=== PATIENT | male | born 1980 | race Hispanic/Latino ===

== ENCOUNTER 2024-02-10 22:12 | Emergency (ER) | payer SELFPAY ==
[~2024-02-10] VITALS: Ht 167.6 cm; Wt 74.8 kg
[2024-02-10 22:13] VITALS: BP 151/104; PULSE 94; RESP 20; TEMP 98.3
[2024-02-10] MEDS: FAMOTIDINE 20MG VIAL IV ONE (22:30)
[2024-02-10] MEDS: ondanSETRON 4MG INJ IVP ONE (22:30)
[2024-02-10] MEDS: 0.9%NACL 1000ML 1,000 ML IV ONE (22:30)
[2024-02-10 23:06] LABS: BASOPHILS # (AUTO) 0.04 K/uL (0.00-0.20); BASOPHILS % (AUTO) 0.5 % (0.0-5.0); EOSINOPHILS # (AUTO) 0.05 K/uL (0.00-0.70); EOSINOPHILS % (AUTO) 0.6 % (0.0-8.0); HEMATOCRIT 39.6 % (42-54); IMMATURE GRANULOCYTE ABSOLUTE 0.03 K/uL (0-1); LYMPHOCYTES # (AUTO) 1.7 K/uL (1.0-4.8); MEAN CORPUSCULAR HEMOGLOBIN 30.8 pg (27.0-33.0); MEAN CORPUSCULAR HGB CONC 34.3 g/dL (32.0-36.0); MEAN CORPUSCULAR VOLUME 89.8 fL (79-99); MONOCYTES # (AUTO) 0.5 K/uL (0.1-1.0); MONOCYTES % (AUTO) 6.2 % (3.0-13.0); NEUTROPHILS # (AUTO) 5.8 K/uL (1.8-7.7); NEUTROPHILS % (AUTO) 71.3 % (40.0-77.0); PLATELET COUNT (AUTO) 317 K/uL (130-400); RED BLOOD CELL COUNT(AUTO) 4.41 MIL/uL (4.50-6.20); RED CELL DISTRIBUTION WIDTH 13.4 % (11.0-15.5); WHITE BLOOD COUNT (AUTO) 8.1 K/uL (4.8-10.8)
[2024-02-10 23:23] LABS: CREATININE 1.5 mg/dL (0.5-1.3)
[2024-02-10 23:27] LABS: ALBUMIN 4.7 g/dL (3.5-5.0); BILIRUBIN,DIRECT 0.1 mg/dL (0.0-0.3); BILIRUBIN,TOTAL 0.6 mg/dL (0.2-1.0); TOTAL PROTEIN, SERUM 9.2 g/dL (6.0-8.3)
[2024-02-11] MEDS ORDERED: ONDA-243 PO (00:55)
[2024-02-11] MEDS ORDERED: FAMO-136 PO (00:55)
[2024-02-11] MEDS ORDERED: METR375C2 PO (01:03)
[2024-02-11] MEDS: morPHINE 2 MG SYG IVP ONE (01:36)
== END 2024-02-11 01:36 | disposition left against medical advice (07) ==
LOC: EDH 22:12
DX: K52.9 Noninfective gastroenteritis and colitis, unspecified (principal); E86.0 Dehydration
CPT/HCPCS: 36415; 80048; 80076; 83690; 85025

== ENCOUNTER 2024-02-18 03:15 | Emergency (ER) | payer SELFPAY ==
[~2024-02-18] VITALS: Ht 167.6 cm; Wt 74.8 kg
[~2024-02-18 03:15] MED LIST: FAMO-136 PO; METR375C2 PO; ONDA-243 PO
[2024-02-18] MEDS ORDERED: ASPI-1190 PO (03:30)
[2024-02-18 03:36] VITALS: BP 146/99; PULSE 86; RESP 18; TEMP 98.4; O2SAT 98
[2024-02-18] MEDS: ibuPROFEN 800 MG TAB PO ONE (03:47)
== END 2024-02-18 04:12 | disposition home or self-care (01) ==
LOC: EDH 03:15
DX: G43.909 Migraine, unspecified, not intractable, without status migrainosus (principal); Z79.4 Long term (current) use of insulin; Z79.899 Other long term (current) drug therapy